=== PATIENT | male | born 1995 | race Caucasian/White ===

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

== ENCOUNTER → 2017-06-22 | Outpatient (CLI) | payer OTHER ==
[~2017-06-22] MED LIST: dayquill PO
--- NOTE | 2017-06-22 16:47 | DIAGNOSTIC IMAGING REPORT ---
RIGHT FOURTH TOE 3 VIEWS HISTORY: F/U RIGHT 4TH TOE FX Right COMPARISON: None. FINDINGS: Mild soft tissue swelling within the fourth toe. No dislocation. An oblique fracture seen within the mid to distal aspect of the proximal phalanx of the fourth toe. No dislocation. No radiopaque foreign bodies. IMPRESSION: A nondisplaced fracture within the proximal phalanx of the fourth toe. No significant healing. Electronically signed by: Alverto Nguyen M.D. 06/22/2017 4:45 PM Dictated Date/Time: 06/22/2017 4:44 PM
== END | disposition home or self-care (01) ==
LOC: C.RDSM 13:13
PROVIDERS: ATTEND Family Medicine
DX: M79.676 Pain in unspecified toe(s) (principal)

== ENCOUNTER → 2017-07-07 | Outpatient (CLI) | payer OTHER ==
--- NOTE | 2017-07-07 16:46 | DIAGNOSTIC IMAGING REPORT ---
RIGHT TOE(S) MIN 2 VIEWS CLINICAL HISTORY: Right 4th toe FX Right trauma. Pain. COMPARISON: 06/22/2017. Discussion: partial interval healing of the fracture proximal phalanx fourth toe. All remaining components of the osseous structures remain stable. No evidence dislocation. IMPRESSION: Partial interval healing of a fracture proximal phalanx right fourth toe. The above report was generated using voice recognition software. It may contain grammatical, syntax or spelling errors. Electronically signed by: Roosevelt Carmona M.D. 07/07/2017 4:44 PM Dictated Date/Time: 07/07/2017 4:43 PM
== END | disposition home or self-care (01) ==
LOC: C.RDSM 16:26
PROVIDERS: ATTEND Family Medicine
DX: S92.514D Nondisplaced fracture of proximal phalanx of right lesser toe(s), subsequent encounter for fracture with routine healing (principal); X58.XXXD Exposure to other specified factors, subsequent encounter

== ENCOUNTER → 2017-11-23 | Outpatient (CLI) | payer OTHER ==
--- NOTE | 2017-11-23 12:19 | DIAGNOSTIC IMAGING REPORT ---
LEFT SHOULDER 3 VIEWS CLINICAL HISTORY: Left shoulder pain. FINDINGS: 3 views of the left shoulder are obtained. No prior studies are available for comparison at the time of dictation. The skeletal structures are well mineralized. No fracture or dislocation is seen. The glenohumeral and acromioclavicular joints appear preserved. The overlying soft tissues are within normal limits. The imaged left lung parenchyma appears clear. IMPRESSION: No acute bony abnormality is seen in the left shoulder. Electronically signed by: Jeff Yousif M.D. 11/23/2017 12:18 PM Dictated Date/Time: 11/23/2017 12:17 PM
== END | disposition home or self-care (01) ==
LOC: C.RDSM 11:25
PROVIDERS: ATTEND Family Medicine
DX: M25.512 Pain in left shoulder (principal)

== ENCOUNTER → 2017-12-03 | Outpatient (CLI) | payer OTHER ==
[~2017-12-03] MED LIST changes: +GADAVIST IV PRN
--- NOTE | 2017-12-03 14:07 | DIAGNOSTIC IMAGING REPORT ---
LEFT SHOULDER INJECTION UNDER FLUOROSCOPIC GUIDANCE CLINICAL HISTORY: Left shoulder pain. Injection for MR arthrogram. PROCEDURE: The risks, benefits, and alternatives to the procedure were discussed with the patient. Written informed consent was obtained. The patient was placed supine on the fluoroscopy table, and a left shoulder injection was performed under fluoroscopic guidance. The area was prepped and draped in the usual sterile fashion. The skin and soft tissues anesthetized with local 1% lidocaine. The left shoulder joint was accessed utilizing a 22-gauge needle, and approximately 7 cc of a mixture of gadolinium contrast, Optiray 300, and saline was injected into the joint space under fluoroscopic guidance. There was normal distention of the capsule. The procedure was well tolerated and without immediate complication. The patient was then transferred to MRI for MR arthrography. FLUOROSCOPY TIME: 16 seconds. IMPRESSION: Unremarkable injection of the left shoulder under fluoroscopic guidance. Electronically signed by: Jeff Yousif M.D. 12/03/2017 2:05 PM Dictated Date/Time: 12/03/2017 2:05 PM
--- NOTE | 2017-12-03 14:44 | DIAGNOSTIC IMAGING REPORT ---
L UPPER EXTREMITY JOINT W/ CLINICAL HISTORY: 22 years-old Male presenting with L SHOULDER PAIN, left shoulder pain after working out, pain for 3 months, failed physical therapy. TECHNIQUE: Multisequence, multiplanar MR imaging of the left shoulder was performed after intra-articular administration of contrast. IV contrast: None. COMPARISON: Plain radiographs from 11/23/2017. FINDINGS: Localizer images: Unremarkable. No bony edema. Glenohumeral articular cartilage preserved. The labrum is focally blunted along the inferior aspect from 4:00 to 6:00. The remainder of the labrum is intact. The biceps labral complex is intact. The long head of the biceps tendon is well seated within the intertubercular groove. Short head of the biceps tendon intact. Long head of the triceps tendon intact. Supraspinatus, teres minor, and subscapularis tendons intact. Focal increased fluid signal intensity along the undersurface of the infraspinatus at the anterior to mid critical zone fibers. This could suggest limited focal partial undersurface tear. Acromioclavicular joint intact. Normal morphology of the acromion. Normal muscle bulk and muscle signal intensity. IMPRESSION: 1. Findings suspicious for a limited focal partial undersurface tear of the infraspinatus in the anterior to mid critical zone fibers. 2. Apparent blunting of the inferior labrum could be congenital or degenerative. No commencing evidence of labral tear. Electronically signed by: Jose Guadalupe Meza M.D. 12/03/2017 2:42 PM Dictated Date/Time: 12/03/2017 2:30 PM
== END | disposition home or self-care (01) ==
LOC: C.MRIBC 13:09
PROVIDERS: ATTEND Family Medicine
DX: M25.512 Pain in left shoulder (principal)